=== PATIENT | female | born 1960 | race Caucasian/White ===

== ENCOUNTER 2019-02-27 07:03 | Outpatient (CLI) | payer OTHER, SELFPAY ==
[2019-02-27 08:39] LABS: Cholesterol 258 mg/dL (50-200); HDL Cholesterol 66 mg/dL (40-60); LDL CHOLESTEROL 174 mg/dL (<100); Triglyceride 59 mg/dL (30-150)
== END 2019-02-27 07:23 ==
PROVIDERS: PCP Emergency Medicine; Visit Provider Emergency Medicine
DX: Z00.00 Encounter for general adult medical examination without abnormal findings (principal); Z13.220 Encounter for screening for lipoid disorders
CPT/HCPCS: 36415; 80061; 83721

== ENCOUNTER 2019-03-13 00:57 | Outpatient (CLI) | payer OTHER, SELFPAY ==
--- NOTE | 2019-03-13 14:30 | DI.MAMMO_ITS ---
SYMPTOMS/DIAGNOSIS: SCREENING, Z12.31 MAMMOGRAMS: Mammograms were interpreted according to the usual protocol including computer analysis with CAD system, tomosynthesis and C view imaging. The breasts are of moderate density with fairly symmetrical distribution of fibroglandular tissue. No dominant mass or clumped microcalcification is identified in either breast. Current examination is compared with previous examinations including January 2017 and there has been no gross interval change in appearance in comparison with the previous studies. CONCLUSION: No specific evidence of malignancy at this time. Routine screening examinations are suggested at yearly intervals in this age group according to the ACS/ACR guidelines. Category 1, breast density category B. MQSA ASSESSMENT OF FINDINGS: Negative. Category 1. Patient will receive a letter notifying them of these results. BI-RADS category B. There are scattered areas of fibroglandular density.
== END 2019-03-13 01:17 ==
PROVIDERS: PCP Emergency Medicine; Visit Provider Emergency Medicine
DX: Z12.31 Encounter for screening mammogram for malignant neoplasm of breast (principal)
CPT/HCPCS: 77063; 77067

== ENCOUNTER 2019-07-05 07:31 | Emergency (ER) | payer OTHER, SELFPAY ==
[2019-07-05 07:36] VITALS: BP 122/75; PULSE 66; RESP 15; TEMP 36.6; O2SAT 96
--- NOTE | 2019-07-05 07:58 | ED.GENADUL_ITS ---
Discharge Plan Disposition Patient Disposition: HOME Condition: Good Discharge Details Chief Complaint: Laceration Clinical Impression: Finger laceration Primary Care Provider: Michael Can ED Provider: Aimee Mayfield Home Meds and New Rx's Prescriptions: Continued magnesium oxide 400 mg magnesium tablet 400 mg PO DAILY Qty: 90 RF: 3 fluticasone propionate 16 GM spray,suspension 2 spry NS DAILY Qty: 16 RF: 2 Discharge Instructions Instructions: Finger Laceration (ED), Skin Adhesive Care (ED) Additional Instructions: Keep wound clean, dry, covered. You may continue with Tylenol and ibuprofen as needed for discomfort. Please monitor for signs of infection including redness, warmth, drainage, increased pain, fever/chills. If you develop these or other new/worsening symptoms please seek care urgently once again. Please allow the adhesive to come off naturally, do not pull at this. Please keep this covered, particularly while at work. Do not put any ointment over this as it may cause premature breakdown of the ointment. Please follow-up with primary care as needed. Referrals: Michael Can DO [Primary Care Provider] - Medical Decision Making Patient is 59-year-old eaiyw-dore-eafmacht female presents today with chief complaint of laceration to the left middle digit. She reports that this morning she was cutting peppers and she accidentally cut the distal tip of the finger with a knife. Suffered a flap laceration to the radial side of the digit. Tetanus is UTD. Denies other injury the time of the incident. Patient has a 1 cm superficial flap laceration that does go into the distal lateral nail. Does not involve the nailbed. She has good capillary refill, sensation is intact. She is having discomfort over this area. We will give her Tylenol and ibuprofen. She is currently soaking and cleansing the wound. We discussed closure options and she is opted for adhesive closure. We discussed risks benefits as well as expected procedural steps of adhesive closure. She voiced understanding and wished to proceed. Please see procedure note. Patient tolerated procedure well. No FB or debris noted in the wound, irrigated. Finger tournequet used for exploration. Wound care was discussed in depth. We discussed signs and symptoms of infection when to seek care urgently once again. All of her questions and concerns were addressed and she is in agreement this plan. She will f/u with primary care as needed. HPI General Mode of arrival: ambulatory . Date/Time Provider Initiated Documentation: 07/05/19 07:36 . Limitations to Documentation: no limitations . Information obtained by: patient and RN notes reviewed . History of Present Illness 59 year old F presents to the emergency department with the chief complaint of left middle finger laceration, described as mild, Quality is described as aching (throbbing), and is localized to the left and upper extremity. Patient reports no radiation. Patient started experiencing this minute(s) and it has been constant. No relieving factors improve symptom(s), No exacerbating factors reported . Patient notes no other symptoms.. Patient did receive the following treatments prior to arrival, none Related Data Home Medications Medication Instructions Recorded Confirmed fluticasone propionate 2 spry NS DAILY #16 gm 09/03/15 07/05/19 magnesium oxide 400 mg PO DAILY #90 tab 02/26/19 07/05/19 Previous Rx's Medication Instructions Recorded magnesium oxide 400 mg PO DAILY #90 tab 02/26/19 Allergies Allergy/AdvReac Type Severity Reaction Status Date / Time Sulfa (Sulfonamide Allergy Unknown SKIN RASH Verified 07/05/19 07:35 Antibiotics) zolpidem AdvReac Unknown MUSCLE Verified 07/05/19 07:35 CRAMPS General Stated Complaint: Laceration EPIFANIO: 4 Review of Systems Constitutional Reports as per HPI, Denies chills and Denies fever(s) Musculoskeletal Reports as per HPI Integumentary/Breasts Reports as per HPI Neurologic Reports as per HPI, Denies sensory deficit and Denies paresthesias PFSH Family History Mother Neoplasm COLON Asthma Colon cancer Father No problems noted. Brother Prostate cancer Son No problems noted. Son No problems noted. Brother Stroke Social History Smoking/Tobacco Use Status: Former Tobacco Use Quit Date: 10/29/05 Tobacco: How many years used: 13 Alcohol Intake: current Alcohol Intake frequency: holidays/special occasions only Alcohol type: wine Drug use: Never Substance use type: does not use Caregiver/Support person: No Household members: spouse Housing: house Do you need help understanding health information?: Rarely Pets and animals: No Sexually active: Yes Do you think of yourself as: straight/heterosexual Current gender identity: female What is your relationship status?: How often do you talk on the phone with friends or family?: decline to answer How often do you get together with friends or relatives?: once per week How often do you attend yazidism or scientology services?: 1-3 times per year Do you belong to any clubs or organized social groups?: no Panel score (0-1 are the most socially isolated patients): 1 What type of physical activity do you participate in: walking Duration: 30-45 minutes/day Frequency: daily Hailee/Jew: Restorationism Special hailee needs: No Seatbelt use: always Helmet use: Yes Helmet use: sometimes Drive intox or ride w/intox 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 Do you feel safe at home: Yes Do you feel safe in your relationship?: Yes Exam Const General: cooperative, healthy appearing, comfortable, no acute distress and well developed Nutritional Appearance: average body habitus and well nourished Orientation: alert and awake Resp Effort & Inspection: normal respiratory effort, able to speak in complete sen tences and no respiratory distress Cardio Rate: regular rate Rhythm: regular rhythm Skin Trauma: laceration (flap laceration distal tip left middle finger into lateral nail 1cm) Neuro General: alert and awake Cognition: normal cognition Speech: speech normal Gait: normal gait Sensory Exam: no sensory deficits noted Extrem Left upper extremity: full ROM and normal capillary refill; abnormal to inspection (laceation as above, capillary and sensation intact) Psych Appearance: grossly normal and well kempt Mental Status: mental status grossly normal Speech and Movement: speech and movement normal Course Vital Signs Temperature 36.6 C 07/05/19 07:36 Pulse 66 07/05/19 07:36 Respiratory Rate 15 07/05/19 07:36 Blood Pressure 122/75 07/05/19 07:36 Pulse Oximetry 96 07/05/19 07:36 Temperature 36.6 C 07/05/19 07:36 Temperature Source Temporal Artery Scan 07/05/19 07:36 Pulse 66 07/05/19 07:36 Respiratory Rate 15 07/05/19 07:36 Respiratory Effort Non-Labored 07/05/19 07:38 Blood Pressure 122/75 07/05/19 07:36 Blood Pressure Position Sitting 07/05/19 07:36 Pulse Oximetry 96 07/05/19 07:36 Oxygen Delivery Method Room Air 07/05/19 07:36 Oxygen Flow Rate 0 07/05/19 07:36 Pain Level 0 07/05/19 07:36 Procedures Laceration Laceration 1: Site: hand Side (If applicable): left Size (cm): 1 Description: flap Depth: simple, single layer Pre-repair: wound explored, irrigated extensively and deep structures intact Skin layer closed with: other (adhesive)
[2019-07-05] MEDS: Acetaminophen 325 MG TAB 650 MG PO (08:02)
[2019-07-05] MEDS: Ibuprofen 600 MG TAB PO (08:02)
== END 2019-07-05 08:33 | disposition home or self-care (01) ==
PROVIDERS: Emergency Provider Physician Assistant; PCP Emergency Medicine
DX: S61.213A Laceration without foreign body of left middle finger without damage to nail, initial encounter (principal); W26.0XXA Contact with knife, initial encounter
CPT/HCPCS: 12001

== ENCOUNTER 2019-09-15 02:04 | Outpatient (CLI) | payer OTHER, SELFPAY ==
[2019-09-15 08:07] LABS: Calculated LDL 154 mg/dL; Cholesterol 225 mg/dL (50-200); HDL Cholesterol 58 mg/dL (40-60); Triglyceride 67 mg/dL (30-150)
== END 2019-09-15 02:24 ==
PROVIDERS: PCP Emergency Medicine; Visit Provider Emergency Medicine
DX: E78.5 Hyperlipidemia, unspecified (principal)
CPT/HCPCS: 36415; 80061

== ENCOUNTER 2020-03-10 13:43 | Outpatient (REF) | payer OTHER, SELFPAY ==
--- NOTE | 2020-03-10 13:15 | PAPFT_PTH ---
PATIENT: Sade Marx LOC: [facility] U#:[id number] AGE/SX: 59/F ROOM: RE03/10/[address]: Michael Can DO : 1960 BED: DIS: 03/10/2020 SPEC #: [id number] RECD: 03/11/20 12:40 STATUS: ALICIA REThomas #: [id number] ISABELLE: 03/10/20 13:[address]: Michael Can DEPT: [facility] Cytology RECD BY: Bisi Francisco Tissues: 1 - CX/ENDOCX FOR PAP SMEARS Procedures: PAP THIN PREP/UVM Screening HPV DNA PROBE Comments: [id number]
== END 2020-03-10 14:03 ==
LOC: LBN 13:43
PROVIDERS: PCP Emergency Medicine; Visit Provider Emergency Medicine
DX: Z12.4 Encounter for screening for malignant neoplasm of cervix (principal); Z11.51 Encounter for screening for human papillomavirus (HPV)
CPT/HCPCS: 88142; 87624

== ENCOUNTER 2020-03-30 05:06 | Outpatient (CLI) | payer OTHER, SELFPAY ==
[2020-03-30 08:32] LABS: Calculated LDL 146 mg/dL (<100); Cholesterol 223 mg/dL (<200); HDL Cholesterol 67 mg/dL (40-60); Triglyceride 50 mg/dL (<150)
== END 2020-03-30 05:26 ==
PROVIDERS: PCP Emergency Medicine; Visit Provider Emergency Medicine
DX: E78.5 Hyperlipidemia, unspecified (principal)
CPT/HCPCS: 36415; 80061

== ENCOUNTER 2021-03-11 20:24 | Outpatient (REF) | payer OTHER, SELFPAY ==
[2021-03-11 21:02] LABS: Calculated LDL 150 mg/dL (<100); Cholesterol 226 mg/dL (<200); HDL Cholesterol 62 mg/dL (40-60); Triglyceride 72 mg/dL (<150)
== END 2021-03-11 20:25 | disposition home or self-care (01) ==
LOC: NCHCN 20:24
PROVIDERS: PCP Emergency Medicine; Visit Provider Emergency Medicine
DX: E78.5 Hyperlipidemia, unspecified (principal)
CPT/HCPCS: 80061

== ENCOUNTER 2021-03-22 01:42 | Outpatient (CLI) | payer OTHER, SELFPAY ==
--- NOTE | 2021-03-22 07:52 | DI.MAMMO_ITS ---
Exam(s) MAMMO SCREENING EXAM: MAMMO SCREENING CLINICAL HISTORY: screening,Z12.39 TECHNIQUE: Mammograms were interpreted according to the usual protocol including computer analysis w [employer] CAD system, tomosynthesis and C-view imaging. COMPARISON: 2012 through 2018 FINDINGS: The breasts are composed of scattered fibroglandular densities, Breast Density category B. No suspicious masses or suspicious microcalcifications are seen. No skin thickening or abnormal axillary lymph nodes are seen. There has been no significant change from prior exams. IMPRESSION: BI-RADS Category 1, Negative mammogram Yearly screening mammography is recommended. Breast Density - Category B, scattered fibroglandular densities. A negative radiographic report should not delay biopsy if a dominant or clinically suspicious mass is present. Up to ten percent of cancers are not identified on mammography. A negative report may reinforce clinical impression. Adenosis and dense breasts may obscure an underlying neoplasm. False positive reports average 6 to 10%. Patient will receive a letter notifying them of these results.
== END 2021-03-22 02:02 ==
PROVIDERS: PCP Emergency Medicine; Visit Provider Emergency Medicine
DX: Z12.31 Encounter for screening mammogram for malignant neoplasm of breast (principal)
CPT/HCPCS: 77063; 77067

== ENCOUNTER 2021-10-31 00:42 | Outpatient (CLI) | payer OTHER, SELFPAY ==
--- NOTE | 2021-10-31 07:30 | DI.RAD_ITS ---
Exam(s) XR HIP RT COMPLETE AP PELVIS EXAM: XR HIP RT COMPLETE AP PELVIS INDICATION: right hip pain,arthralgia,m25.559. COMPARISON: No exams were available for comparison TECHNIQUE: 2D digital imaging was performed. FINDINGS: Bones appear normally mineralized. The hip joint spaces are well maintained. There is mild bilatera l acetabular spurring. SI joints and pubic symphysis are unremarkable. Degenerative disc changes ar e noted at L4-5 and L5-S1. IMPRESSION: Mild degenerative changes of the hips. More advanced degenerative changes are noted in the lower lum bar spine. DATA REPOSITORY: RADIATION DOSE DELIVERED:
== END 2021-10-31 01:02 ==
PROVIDERS: PCP Emergency Medicine; Visit Provider Emergency Medicine
DX: M25.551 Pain in right hip (principal); M16.11 Unilateral primary osteoarthritis, right hip
CPT/HCPCS: 73502

== ENCOUNTER 2023-05-04 06:16 | Day surgery (SDC) | payer OTHER, SELFPAY ==
--- NOTE | 2023-05-03 20:31 | W.PM.DSUDISC ---
Date of service: 05/04/23 Time of Service: 08:05 Discharge Plan Disposition Patient Disposition: Home Condition: Good Discharge Details Reason For Visit: Colonoscopy Attending Provider: Phoenix Peralta Primary Care Provider: Fatoumata Isbell Home Meds and New Rx's Prescriptions: No Action No Known Home Meds Discharge Instructions Instructions: Diverticulosis (GEN), Diverticulosis Diet (GEN), Colorectal Polyps (GEN) Additional Instructions: Sade, we were able to finish your colonoscopy today without any problems. The quality of your prep was excellent. You do have a modest amount of sigmoid diverticulosis. Diverticula are weak spots in the colon wall that typically occur with age. They can become infected and inflamed, and patients typically experience that as pain in the left lower part of the abdomen. I have attached some general information here regarding diverticular disease. This is extremely common, and I find it in almost all patients that I perform colonoscopies in. My general advice is to maintain it diet that is rich in fiber, and to stay well-hydrated and avoid symptoms of constipation. I also found 1 very small polyp. In fact, it was so small that it may not in fact be a true polyp. Regardless, I removed this area, and when I have the final report from the pathologist, I will be in touch with any final recommendations. 1. If tolerated, consume a soft, low fiber diet for 1-2 days. 2. Do not drive, drink alcohol, operate machinery, make critical decisions, or do activities that require coordination or balance for 24 hours. 3. Because air was put into your colon during the procedure, expelling air from your rectum (passing gas or farting) is normal. 4. You may not have a bowel movement for 1-3 days because of the colonoscopy prep. This is normal. 5. Go directly to the emergency room if you notice any of the following: Develop chills (warm to touch), or if you have a thermometer and your temperature is above 101 Difficulty breathing or difficultly swallowing Persistent vomiting Severe abdominal pain, other than gas cramps Severe chest pain Black, tarry stools Any bleeding ? exceeding one tablespoon 6. Call your physician if the site where your intravenous was started becomes red, swollen, painful, and warm to touch. 7. Your physician has reviewed your pre-procedure medications. Please continue to take those medications as previously ordered. You will be given specific information/education regarding any changes to your medications before leaving. Activity:: Activity as Tolerated Diet:: As Tolerated Discharge Orders Discharge Orders: Discharge Order (Routine); Ordered 05/03/23 Ordered By: Phoenix Peralta DS: Diagnosis Discharge Diagnosis (1) Screen for colon cancer: Status: Acute
--- NOTE | 2023-05-03 20:32 | W.COLOREPORT ---
Date of service: 05/04/23 Time of Service: 08:08 Colonoscopy Report Date of procedure: 05/04/23 Pre-op diagnosis general: Screening colonoscopy Post-op diagnosis procedure note: other (Diverticulosis, colon polyp) Procedure: Colonscopy with polypectomy Surgeon: Phoenix Peralta Anesthesia Type: General:No Airway Estimated blood loss (mL): 5 Pathology: other (Colon polyp at 85 cm) Complications: None Disposition: same day Indications: Sade is a 62 year old woman with a first degree relative with colon cancer who needs a screening colonoscopy Prep: Miralax/Dulcolax Procedure Start Time: :29 Procedure End Time: :55 Retraction Time: 18 Findings: Sigmoid diverticulosis, colon polyp at 85 cm Procedure Description: After the induction of monitored anesthetic care, and with the patient in left lateral decubitus position, I began by performing an external anorectal exam.? Perineum and skin were normal, as was the anal verge.? There was no evidence of external hemorrhoids.? Next, I performed a digital rectal exam.? I did not appreciate any abnormal findings.? Next, I advanced a colonoscope into the rectal vault.? I performed retroflexion.? This appeared normal.? Using insufflation, I then advanced the colonoscope beyond the rectal folds and into the sigmoid colon before advancing towards the cecum.? The quality of the prep was outstanding.? There was moderate sigmoid diverticulosis. The scope was noted to be in the cecum by identification of the ileocecal valve and appendiceal orifice.? I then began withdrawing the colonoscope using repeated irrigation as necessary for full evaluation of the colonic mucosa. Around 5 cm from the anal verge I identified a 0.25 cm polyp. ?It appeared sessile in character. ?I was able to remove this with a cold forcep polypectomy. ?I examined the site, and there was minimal bleeding. ?Once this was completed, I continued to withdraw the scope and examine the remainder of the colonic mucosa.?Once the scope was withdrawn to the level of the rectum, great care was taken to examine portions of the rectal folds.? Finally, the scope was withdrawn and the patient was brought to the same-day surgery recovery unit as the anesthetic wore off. ?The findings and instructions were shared with the patient prior to discharge.
[2023-05-04 06:28] VITALS: BP 117/68; PULSE 53; RESP 16; TEMP 36.3; O2SAT 94
[2023-05-04] MEDS: Lactated Ringers 1,000 ML 80 ML IV (06:43)
--- NOTE | 2023-05-04 07:08 | ANES.PREOP_ITS ---
General Info Date of Service Date Performed: 05/04/23 Height: 5 ft 7 in Weight: 59.4 kg Body Mass Index (BMI): 20.5 Surgical Procedure: Operation Date: 05/04/23 07:35 Proposed Procedure Side Surgeon p Colonoscopy Phoenix Peralta MD Meds Allergies and Home Medications Allergies Allergy/AdvReac Type Severity Reaction Status Date / Time Sulfa (Sulfonamide Allergy Unknown SKIN RASH Verified 05/04/23 06:33 Antibiotics) zolpidem AdvReac Unknown MUSCLE Verified 05/04/23 06:33 CRAMPS Home Medication Medication Instructions Recorded Unknown [No Known Home Meds] 11/30/21 Current Visit Medications: Current Medications Generic Name Dose Route Start Last Admin Trade Name Freq PRN Reason Stop Dose Admin Hyoscyamine Sulfate 0.125 mg 05/03/23 20:34 Hyoscyamine 0.125 Mg Sl/Oral/Chew SL 06/02/23 20:33 DIRECTED PRN Ringer's Solution 1,000 mls @ 80 mls/hr 05/04/23 06:00 05/04/23 06:43 IV 05/04/23 23:59 80 mls/hr INFUSION KARSON Administration IV Miscellaneous Supplies 1 each 05/04/23 06:00 Iv Access IV 05/04/23 23:59 DIRECTED KARSON Ondansetron HCl 4 mg 05/03/23 20:34 Ondansetron 4 Mg/2 Ml Vial IVP 06/02/23 20:33 Q4H PRN PRN Nausea / Vomiting Sodium Chloride 0 ml 05/04/23 06:00 Normal Saline Flush 10 Ml Syr IV 05/04/23 23:59 PRN PRN Sodium Chloride 0 ml 05/04/23 06:00 Normal Saline 10 Ml Vial IJ 05/04/23 23:59 DIRECTED PRN Sterile Water 0 ml 05/04/23 06:00 Water,Injection,Sterile 10 Ml Vial IJ 05/04/23 23:59 DIRECTED PRN PFSH Active Problems Active Problems: Problem Status Onset Code Screen for colon cancer Z12.11 Hyperlipidemia E78.5 Trochanteric bursitis, right hip M70.61 Medical History Medical History Collagenous colitis (~2012) found on colonoscopy 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 Hx of smoking smoked for 30 yrs, 1ppd; quit in 2005 Surgical History Surgical History Status post laparoscopy for endometriosis Tobacco Smoking/Tobacco Use Status: Former Tobacco Use Passive smoking exposure: No Second hand exposure: No Alcohol Alcohol Intake: current Alcohol intake frequency: a few times a month Alcohol type: wine Substance Use Substance use: Never Substance use type: does not use Vital Signs and Lab Results Vital Signs Most Recent Vital Signs in EMR: Most Recent Vital Signs Temp Pulse Resp BP Pulse Ox 36.3 C L 53 L 16 117/68 94 05/04/23 06:28 05/04/23 06:28 05/04/23 06:28 05/04/23 06:28 05/04/23 06:28 Lab Results Blood Type / Crossmatch: No Data to Display Complete Blood Count: 2 No Data to Display Complete Metabolic Panel: No Data to Display Liver Function Panel: No Data to Display Coagulation Panel: No Data to Display Cardiac Panel: No Data to Display Arterial Blood Gas: No Data to Display Venous Blood Gas: No Data to Display Pancreas Panel: No Data to Display Thyroid Panel: No Data to Display Infectious Disease: No Data to Display Blood Cultures: No Data to Display Toxicology Panel: No Data to Display Anesthesia Assessment and Plan Anesthesia History Personal History: No History of Anesthesia Complications Family History: No Family History of Anesthesia Complications Exercise Tolerance Exercise Tolerance: Metabolic Equivalents>4 Pertinent Negatives Pertinent Negatives: No Symptoms of GERD Cardiac & Pulmonary Exam Cardiac Exam: Normal S1/S2 Heart Sounds Pulmonary Exam: Clear Bilateral Breath Sounds Implantable Cardiac Device Does patient have a Pacemaker or an ICD?: No Airway Exam Known Difficult Airway: No Mallampati Class: 2 Mouth Opening: Normal (> 3cm) Thyromental Distance: Greater than 3 cm Neck Range of Motion: Full ROM Neck Circumference: Normal Teeth Condition: Normal Dentition ASA Classification ASA Score: ASA 2 Emergency Case?: No NPO Status NPO Status: NPO Clears >2 hours, Solids >8 hours Anesthesia Plan Resuscitation Status: Full Code Anesthesia Technique: General Anesthesia Airway Planned: Natural Airway Monitors Used: Standard Monitors
[2023-05-04 07:12] VITALS: BMI 20.5
--- NOTE | 2023-05-04 07:46 | POLYP_PTH ---
PATIENT: Sade Marx LOC: [facility] U#:[id number] AGE/SX: 62/F ROOM: RE05/04/[address]: Phoenix Peralta MD : 1960 BED: DIS: 05/04/2023 SPEC #: [id number] RECD: 05/04/23 12:36 STATUS: ALICIA RE #: [id number] ISABELLE: 05/04/23 07:[address]: Phoenix Peralta DEPT: Surgical Specimen RECD BY: Yoli Maciel ENTERED: 05/04/23 12:38 SP TYPE: POLYP OTHR DR: Fatoumata Isbell Tissues: 1 - BIOPSY BOWEL Procedures: GROSS AND MICRO LEVEL 4 Comments: [id number]
[2023-05-04 08:03] VITALS: BP 102/66; PULSE 58; RESP 15; TEMP 36.3; O2SAT 98
--- NOTE | 2023-05-04 08:15 | W.ANESPOSTOP ---
Postoperative Evaluation Date, Time and Location Date Performed: 05/04/23 Time Performed: 08:15 Patient Location: Day Surgery Unit Vital Signs Most Recent Imported Vital Signs: Most Recent Vital Signs Temp Pulse Resp BP Pulse Ox 36.3 C L 53 L 16 117/68 94 05/04/23 06:28 05/04/23 06:28 05/04/23 06:28 05/04/23 06:28 05/04/23 06:28 Pain Score Most Recent Pain Score: Most Recent Pain Score Pain Level 0 05/04/23 06:28 Assessment Mental Status: Awake (Alert & Oriented to Patient Baseline) Airway and Respiratory Function: Patent airway with normal (patient baseline) respiratory exam Cardiovascular Function: Hemodynamically Stable Hydration Status: Adequately Hydrated Nausea & Vomiting: No Nausea or Vomiting Pain: Pt. Denies Any Pain Peripheral Nerve Block: Patient did not receive a nerve block
[2023-05-04 08:29] VITALS: BP 110/75; PULSE 57; RESP 15; TEMP 36.3; O2SAT 97
== END 2023-05-04 08:54 | disposition home or self-care (01) ==
PROVIDERS: PCP Family Medicine; Visit Provider Surgery
PROC: 0DJD8ZZ Inspection of Lower Intestinal Tract, Via Natural or Artificial Opening Endoscopic (ICD-10-PCS; CPT 45378; principal; 2023-05-04 07:30)
DX: Z12.11 Encounter for screening for malignant neoplasm of colon (principal); K63.5 Polyp of colon; Z80.0 Family history of malignant neoplasm of digestive organs; K57.30 Diverticulosis of large intestine without perforation or abscess without bleeding
CPT/HCPCS: 45380; 88305; J2001

== ENCOUNTER 2023-05-11 00:10 | Outpatient (CLI) | payer OTHER, SELFPAY | END 2023-05-11 00:30 | LOC: DI 00:11 | PROVIDERS: PCP Family Medicine; Visit Provider Family Medicine | DX: Z12.31 Encounter for screening mammogram for malignant neoplasm of breast (principal) | CPT/HCPCS: 77063; 77067 ==

== ENCOUNTER 2024-04-15 04:58 | Outpatient (CLI) | payer OTHER, SELFPAY ==
[2024-04-15 10:15] LABS: Abs Immature Grans 0.01 10^3/uL (0.0-0.06); Absolute Basophil Count 0.03 10^3/uL (0.0-0.2); Absolute Eosinophil Count 0.07 10^3/uL (0.0-0.7); Absolute Lymphocyte Count 1.89 10^3/uL (1.2-3.4); Absolute Neutrophil Count 2.83 10^3/uL (1.2-6.7); Basophils % 0.6 %; Eosinophils % 1.3 %; HCT 39.4 % (36.0-46.0); HGB 13.2 g/dL (11.2-15.7); Immature Grans % 0.2 %; Lymphocytes % 36.1 %; MCH 30.3 pg (27.0-33.0); MCHC 33.5 % (32.0-36.0); MCV 90 fL (80-95); Monocytes % 7.6 %; Neutrophils % 54.2 %; Platelet Count 215 10^3/uL (130-400); RBC 4.36 10^6/uL (3.93-5.22); RDW 12.1 % (11.7-14.6); WBC 5.23 10^3/uL (4.4-10.8)
[2024-04-15 10:57] LABS: Anion Gap 5.7 mmol/L (3-11); BUN 12 mg/dL (7-18); CO2 32.3 mmol/L (21.0-32.0); CREATININE 0.7 mg/dL (0.55-1.02); Calculated LDL 128 mg/dL (<100); Chloride 104 mmol/L (98-107); Cholesterol 206 mg/dL (<200); Estimated GFR 96.52 (mL/min/1.73m2); Ferritin 75 ng/mL (8-252); Glucose 97 mg/dL (74-106); HDL Cholesterol 66 mg/dL (40-60); Magnesium 1.7 mg/dL (1.8-2.4); Potassium 3.9 mmol/L (3.5-5.1); Sodium 142 mmol/L (136-145); Triglyceride 63 mg/dL (<150)
== END 2024-04-15 04:59 | disposition home or self-care (01) ==
LOC: LBO 04:58
PROVIDERS: PCP Family Medicine; Visit Provider Family Medicine
DX: Z13.6 Encounter for screening for cardiovascular disorders (principal); G25.81 Restless legs syndrome; G47.62 Sleep related leg cramps
CPT/HCPCS: 36415; 80048; 80061; 82728; 83735; 85025

== ENCOUNTER → 2024-05-27 02:29 | Outpatient (CLI) | payer OTHER, SELFPAY ==
--- NOTE | 2024-05-27 07:30 | DI.MAMMO_ITS ---
Exam(s) MAMMO SCREENING EXAM: MAMMO SCREENING CLINICAL HISTORY: screening,z12.39 TECHNIQUE: Mammograms were interpreted according to the usual protocol including computer analysis w [employer] CAD system, tomosynthesis and C-view imaging. COMPARISON: 2014 through 2022 FINDINGS: The breasts are composed of scattered fibroglandular densities, Breast Density category B. No suspicious masses or suspicious microcalcifications are seen. No skin thickening or abnormal axillary lymph nodes are seen. There has been no significant change from prior exams. IMPRESSION: BI-RADS Category 1, Negative mammogram Yearly screening mammography is recommended. Breast Density - Category B, scattered fibroglandular densities. A negative radiographic report should not delay biopsy if a dominant or clinically suspicious mass is present. Up to ten percent of cancers are not identified on mammography. A negative report may reinforce clinical impression. Adenosis and dense breasts may obscure an underlying neoplasm. False positive reports average 6 to 10%. Patient will receive a letter notifying them of these results.
== END ==
PROVIDERS: PCP Family Medicine; Visit Provider Family Medicine
DX: Z12.39 Encounter for other screening for malignant neoplasm of breast (principal); G25.81 Restless legs syndrome; G47.62 Sleep related leg cramps; Z12.31 Encounter for screening mammogram for malignant neoplasm of breast
CPT/HCPCS: 77063; 77067

== ENCOUNTER 2025-05-13 01:49 | Outpatient (CLI) | payer OTHER, SELFPAY ==
--- NOTE | 2025-05-13 07:45 | DI.DEXA_ITS ---
Exam(s) XR DEXA BONE DENSITY W/WO ALDA EXAM: XR DEXA BONE DENSITY W/WO ALDA CLINICAL HISTORY: menopausal disorder,n95.9 TECHNIQUE: COMPARISON: No exams were available for comparison FINDINGS: Lateral Spine Image: Unremarkable. No compression deformities identified. Left hip: Total T-Score: 0.3 Total Z-Score: 1.5 T- and Z-scores: Within normal limits. Lumbar Spine: Total T-Score: 0.7 Total Z-Score: 2.5 T- and Z-scores: Within normal limits. IMPRESSION: No evidence of osteoporosis.
== END 2025-05-13 02:09 ==
LOC: DI 01:49
PROVIDERS: PCP Family Medicine; Visit Provider Family Medicine
DX: N95.9 Unspecified menopausal and perimenopausal disorder (principal)
CPT/HCPCS: 77080

== ENCOUNTER 2025-07-12 13:09 | Emergency (ER) | payer OTHER, SELFPAY ==
[2025-07-12 13:29] VITALS: BP 123/80; PULSE 63; RESP 14; TEMP 36.6; O2SAT 100
[2025-07-12 13:36] VITALS: BP 123/80; PULSE 63; RESP 14; TEMP 36.6; O2SAT 100
--- NOTE | 2025-07-12 13:44 | ED.GENADUL_ITS ---
Discharge Plan Disposition Patient Disposition: Home Condition: Stable Discharge Details Clinical Impression: Preseptal cellulitis of right lower eyelid Primary Care Provider: Fatoumata Isbell ED Provider: Haile Brown Home Meds and New Rx's Prescriptions: New amoxicillin-pot clavulanate 875-125 mg tablet 1 tab PO BID 7 Days Qty: 14 0RF Discharge Instructions Instructions: Amoxicillin and Clavulanate, Preseptal Cellulitis ED Additional Instructions: You were seen in the emergency department for your right eye excessive lacrimation as well as mild right lower eyelid swelling and pain. It is possible you have a preseptal cellulitis which we are going to treat with antibiotics called Augmentin, we gave you doses today and sent the rest to the pharmacy here at the hospital. We ruled out closed-angle glaucoma and you have no symptoms of vision threatening illnesses like retinal detachment. It is possible you have some sort of nasolacrimal congenital malformation or dacryocystitis but this needs to be worked up by optometry or ophthalmology. Please return to an emergency department with ophthalmology capability should you have any loss of vision or severe sudden increase in pain. Referrals: Fatoumata Isbell MD [Primary Care Provider, Medicine] HPI General Date/Time Provider Initiated Documentation: 07/12/25 13:43 . HPI Narrative: 65 year-old female presents to ED today by POV/ambulating with a chief complaint of R eye excessive lacrimation, irritation, photophobia and pain with onset over the past two weeks- seems a little worse today. Quality described as R eye irritation, lower eyelid puffiness, chronic eye floaters, and excessive lacrimation of R eye, no radiation to pain with eye movement, loss of vision, change in her longtime chronic floaters, patient does endorse sometimes when she is sick that she has excessive tearing from that eye's medial canthus. Severity is described as mild to moderate. Palliating factors include cool/warm compresses help- and OTC analgesics help. Provoking factors include nothing specific. Patient not anticoagulated. Related Data Home Medications ?Medication ?Instructions ?Recorded ?Confirmed amoxicillin 875 mg-potassium 1 tab PO BID 7 days #14 t abs 07/12/25 clavulanate 125 mg tablet Previous Rx's ?Medication ?Instructions ?Recorded amoxicillin 875 mg-potassium 1 tab PO BID 7 days #14 t abs 07/12/25 clavulanate 125 mg tablet Allergies Allergy/AdvReac Type Severity Reaction Status Date / Time Sulfa (Sulfonamide Allergy Unknown SKIN RASH Verified 07/12/25 13:38 Antibiotics) zolpidem AdvReac Unknown MUSCLE Verified 07/12/25 13:38 CRAMPS General Stated Complaint: EyeProblem EPIFANIO: 3 Review of Systems All systems reviewed & are unremarkable except as noted in HPI and below Exam Narrative Exam Narrative: GENERAL APPEARANCE: Well-nourished, non-toxic, awake and alert, atraumatic, no acute distress. SKIN: Warm, pink, dry, intact, without rashes/lesions/ulcerations. HEAD: Normocephalic, atraumatic, normal hair distribution for gender/age. EYES: Normal conjunctiva, no exudates on lids/lashes, mild swelling and edema to the right lower eyelid without erythema, mildly tender to touch over the right maxillary sinus, mild conjunctival erythema to the medial canthus of right eye, no AV nicking seen on funduscopic exam, Red reflex intact, no pain with EOM movement, no ophthalmoplegia, no corneal foreign body or abrasion or ulceration or dendritic lesions seen on fluorescein exam, normal IOP: 14 OD, 12 OS ENT: Nares patent, no circumoral cyanosis, no facial swelling NECK: Supple, trachea midline, painless cervical ROM. LUNGS/CHEST: Non-labored respirations, normal A/P diameter, symmetrical ex pansion, no chest wall deformity HEART (CV/PV): No peripheral edema, no JVD. ABDOMEN: Soft, non-distended, no guarding. MSK: Normal ROM, no swelling/deformity to bilateral UEs or LEs, moving all extr emities without weakness, no cyanosis, spine midline without tenderness, normal curvature. NEURO: Mental Status AAOx4 - alert to person, place, time, events No facial droop, no forehead involvement. Motor: No focal weakness - strength 5/5 in bilateral UEs and LEs, proximal and distal, symmetric. Sensory: sensation intact to light touch globally. Gait normal: patient ambulated without ataxia into ED room. PSYCH: euthymic, cooperative, pleasant, appropriate speech Course Vital Signs Vital signs: Vital Signs Temperature 36.6 C 07/12/25 13:29 Pulse 63 07/12/25 13:29 Respiratory Rate 14 07/12/25 13:29 Blood Pressure 123/80 07/12/25 13:29 Pulse Oximetry 100 07/12/25 13:29 Temperature 36.6 C 07/12/25 13:36 Temperature Source Oral 07/12/25 13:36 Pulse 63 07/12/25 13:36 Respiratory Rate 14 07/12/25 13:36 Blood Pressure 123/80 07/12/25 13:36 Blood Pressure Position Supine 07/12/25 13:36 Pulse Oximetry 100 07/12/25 13:36 Oxygen Delivery Method Room Air 07/12/25 13:36 Oxygen Flow Rate 0 07/12/25 13:29 Pain Level 6 07/12/25 13:29 Medical Decision Making This dictation utilizes [id number] dictation software and may contain unedited grammatical errors. 65 year-old female presents to ED today by POV/ambulating with a chief complaint of R eye excessive lacrimation, irritation, photophobia and pain with onset over the past two weeks- seems a little worse today. Quality described as R eye irritation, lower eyelid puffiness, chronic eye floaters, and excessive lacrimation of R eye, no radiation to pain with eye movement, loss of vision, change in her longtime chronic floaters, patient does endorse sometimes when she is sick that she has excessive tearing from that eye's medial canthus. Severity is described as mild to moderate. Palliating factors include cool/warm compresses help- and OTC analgesics help. Provoking factors include nothing specific. Patients' medical history: Noncontributory. Family and social history: Noncontributory. Pertinent exam findings / vital signs include mild swelling and edema to the rig ht lower eyelid without erythema, mildly tender to touch over the right maxillary sinus, mild conjunctival erythema to the medial canthus of right eye, no AV nicking seen on funduscopic exam, Red reflex intact, no pain with EOM movement, no ophthalmoplegia, no corneal foreign body or abrasion or ulceration or dendritic lesions seen on fluorescein exam, normal IOP: 14 OD, 12 OS. Differential / pathologies of concern include glaucoma, dacryocystitis, preseptal cellulitis, allergic rhinitis, nasolacrimal abnormality or communication. Diagnostic studies of: - None. Interventions of: - Empiric coverage for preseptal cellulitis, patient is going to call her manager placement in [place] tomorrow for an urgent appointment, otherwise any negative changes will represent to ER preferably 1 with ophthalmology. ED Course/Assessment/Plan: 65-year-old female was having excessive lacrimation from her right eye which has happened in the past with certain sinus infections where she gets air bubbles that present out of her right lacrimal gland. She has mild pain that is well handled with [id number] analgesics and no pain with EOM movement, no hardy erythema to the conjunctiva, no scleral injection, no abnormality seen on funduscopic exam, fluorescein eye exam shows no corneal ulcers or abrasions or dendritic lesions, she has mild eyelid edema to the right lower eyelid which will be reasonable to treat for preseptal cellulitis, it is possible that she has some sort of undiagnosed tear duct pathology or perhaps communication between her nasal passages and her lacrimal duct. Findings not consistent with orbital cellulitis, closed angle glaucoma, retinal detachment or loss of vision, corneal ulceration or abrasion, conjunctivitis. Disposition of preseptal cellulitis of right lower eyelid. Patient verbalized understanding of the plan and return to ED criteria and engaged in shared decision making. Medical Records Medical records reviewed: Yes I reviewed the patient's medical records. 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 Surgical History (Updated 05/04/23 @ 09:35 by Justina Leiva) History of colonoscopy (~04/2023) Polup removed Status post laparoscopy for endometriosis Family History Mother , age 76 Asthma Colon cancer Father , age 26 No problems noted. Brother Prostate cancer Son No problems noted. Son No problems noted. Brother Stroke Social History (Updated 04/22/24 @ 15:36 by Alta Dash) Smoking/Tobacco Use Status: Former Tobacco Use tobacco type: cigarettes Quit Date: 10/29/05 Tobacco: How many years used: 30 Second Hand Exposure: No Smoking risk assessment performed?: Yes Alcohol Intake: current Alcohol Intake frequency: holidays/special occasions only Alcohol type: wine Drug use: Never Substance use type: does not use Caregiver/Support person: No Household members: spouse Housing: house Number of Children: 2 number of grandchildren: 1 Communication Needs: None Do you need help understanding health information?: Rarely current occupation: Works at [employer] kitchen Pets and animals: Yes Pets and animals: dog(s) Sexually active: Yes Do you think of yourself as: straight/heterosexual Current gender identity: female What is your relationship status?: How often do you talk on the phone with friends or family?: once per week How often do you get together with friends or relatives?: once per week How often do you attend adventist or mormonism services?: 1-3 times per year Do you belong to any clubs or organized social groups?: no Panel score (0-1 are the most socially isolated patients): 1 What type of physical activity do you participate in: walking and other Details: hiking Duration: 45-60 minutes/day Frequency: 5-6 times per week Hailee/Advent: No preference Special hailee needs: No Seatbelt use: always Helmet use: Yes Helmet use: sometimes Drive intox or ride w/intox moving van driver: No Do you feel safe at home: Yes Do you feel safe in your relationship?: Yes PAWSS Have you Been Recently Intoxicated or Drunk Within the Last 30 days?: No Have you Ever Experienced Previous Episodes of Alcohol Withdrawal?: No Have you ever Experienced Withdrawal Seizures?: No Have you ever Experienced Delirium Tremens(DT)s?: No Have you ever undergone Alcohol Rehabilitation Treatment (i.e, inpt ot outpatient treatment programs)?: No Have you ever Experienced Blackouts?: No Have you ever Combined Alcohol with other Downers within the last 90 days?: No Have you ever Combined Alcohol with any other Substance of Abuse during the last 90 days?: No Positive Blood Alcohol level on Presentation? [PCS.BAL]: No Evidence of Increased Autonomic Activity (i.e. HR>120, tremor, sweating, agitation, nausea)?: No Result: 0
[2025-07-12] MEDS: Fluorescein STRIPS 100/BOX 1 MG OP (16:09)
[2025-07-12] MEDS: Tetracaine 0.5% 4 ML BTL OP (16:10)
== END 2025-07-12 16:11 | disposition home or self-care (01) ==
PROVIDERS: Emergency Provider Physician Assistant; PCP Family Medicine
DX: L03.213 Periorbital cellulitis (principal)
CPT/HCPCS: 99283 ×2